=== PATIENT | female | born 1990 | race Caucasian/White ===

== ENCOUNTER 2024-10-05 15:30 | Emergency (ER) | payer MEDICAID ==
[~2024-10-05] VITALS: Ht 157.5 cm; Wt 75.8 kg
[2024-10-05] MEDS: ibuprofen tablet 400 MG TABLET PO ONE (16:19)
[2024-10-05] MEDS: acetaminophen 325mg tablet PO ONE (16:19)
[2024-10-05 17:47] VITALS: BP 128/79; PULSE 79; RESP 16; TEMP 97.8; O2SAT 98
== END 2024-10-05 17:54 | disposition home or self-care (01) ==
LOC: ER 15:35
DX: S92.511A Displaced fracture of proximal phalanx of right lesser toe(s), initial encounter for closed fracture (principal); W22.01XA Walked into wall, initial encounter; Y93.01 Activity, walking, marching and hiking; Y92.89 Other specified places as the place of occurrence of the external cause; Y99.8 Other external cause status
CPT/HCPCS: 73630; 99283